=== PATIENT | female | born 1975 | race Caucasian/White ===

== ENCOUNTER 2017-10-08 15:35 | Inpatient (IN) | payer MEDICAID ==
[~2017-10-08] VITALS: Ht 160 cm; Wt 121.8 kg
[2017-10-08 15:38] VITALS: Ht 160 cm; Wt 121.8 kg
[2017-10-08] MEDS ORDERED: LOSARTAN POTAS100 M1 PO (16:36)
[2017-10-08] MEDS ORDERED: VITAMIN B121000 MCG PO (16:37)
[2017-10-08] MEDS ORDERED: ZOL100 PO (16:37)
[2017-10-08] MEDS ORDERED: VITAMIN D32000 I2 PO (16:37)
[2017-10-08] MEDS ORDERED: ZYRTEC10 MG PO (16:38)
[2017-10-08] MEDS ORDERED: JARDIANCE25 MG PO (16:38)
[2017-10-08] MEDS ORDERED: HUMALOG100 UNIT/1 SQ (16:38)
[2017-10-08 16:39] LABS: UA SPECIFIC GRAVITY <=1.005 (1.005-1.035); microscopic required? YES; urine erythrocyte 2+ (NEGATIVE)
[2017-10-08] MEDS ORDERED: FUROSEMIDE40 MG PO (16:39)
[2017-10-08] MEDS ORDERED: SIMVASTATIN20 M1 PO (16:39)
[2017-10-08] MEDS ORDERED: POTASSIUM CHLO10 MEQ PO (16:42)
[2017-10-08] MEDS ORDERED: TOPAMAX50 M1 PO (16:43)
[2017-10-08] MEDS ORDERED: TOPAMAX100 MG PO (16:43)
[2017-10-08] MEDS ORDERED: IMITREX100 MG PO (16:43)
[2017-10-08 16:45] LABS: BASOPHIL % 0.3 % (0-2); PLATELET COUNT 332 x10^3mcL (130-400); RED CELL DISTRIBUTION WIDTH 14.1 % (11.5-14.5)
[2017-10-08 16:46] LABS: CARBON DIOXIDE 28.2 mmol/L (21-32); CHLORIDE SERUM 103 mmol/L (98-107); CREATININE SERUM 0.8 mg/dL (0.6-1.0); GFR1 > 60 mL/min; GLUCOSE SERUM 270 mg/dL (74-106); SODIUM SERUM 140 mmol/L (136-145)
[2017-10-08 16:52] LABS: ALKALINE PHOSPHATASE 65 U/L (46-116); ALT/SGPT 27 U/L (14-59); AST/SGOT 16 U/L (15-37); BILIRUBIN TOTAL 0.28 mg/dL (0.20-1.00)
[2017-10-08 16:56] LABS: ALBUMIN 2.9 g/dL (3.4-5.0)
[2017-10-08 17:39] LABS: AMPHETAMINE QUAL UR NONE DETECTED (NEG <=1000)
[2017-10-08 17:40] LABS: CHOLESTEROL/HDL RATIO 2.8; MAGNESIUM 2.1 mg/dL (1.8-2.4); PHOSPHOROUS 3.8 mg/dL (2.5-4.9)
[2017-10-08 17:46] VITALS: BP 143/68
[2017-10-08 17:47] LABS: T3 TOTAL 1.14 ng/mL
[2017-10-08 18:15] LABS: FREE T4 1.23 ng/dL (0.76-1.46); FREE THYROXINE INDEX 3.6 ug/dL (1.4-4.5); T4(THYROXINE) 10.4 ug/dL (4.7-13.3)
[2017-10-08 20:40] VITALS: BP 124/63
[2017-10-09 05:53] VITALS: BP 107/51
[2017-10-09 06:03] LABS: BASOPHIL % 0.3 % (0-2); PLATELET COUNT 272 x10^3mcL (130-400); RED CELL DISTRIBUTION WIDTH 13.7 % (11.5-14.5)
[2017-10-09 06:23] LABS: CALCIUM 7.9 mg/dL (8.5-10.1); CARBON DIOXIDE 28.1 mmol/L (21-32); CHLORIDE SERUM 106 mmol/L (98-107); CREATININE SERUM 0.6 mg/dL (0.6-1.0); GFR1 > 60 mL/min; GLUCOSE SERUM 137 mg/dL (74-106); POTASSIUM SERUM 3.8 mmol/L (3.5-5.1); SODIUM SERUM 140 mmol/L (136-145)
[2017-10-09 09:23] VITALS: BP 122/55
[2017-10-09 14:09] VITALS: BP 102/58
[2017-10-09 16:51] VITALS: BP 113/51
[2017-10-09 20:43] VITALS: BP 117/48
[2017-10-10 05:46] LABS: BASOPHIL % 0.4 % (0-2); PLATELET COUNT 285 x10^3mcL (130-400); RED CELL DISTRIBUTION WIDTH 13.7 % (11.5-14.5)
[2017-10-10 06:00] VITALS: BP 113/64
[2017-10-10 06:09] LABS: CALCIUM 8.5 mg/dL (8.5-10.1); CARBON DIOXIDE 27.7 mmol/L (21-32); CHLORIDE SERUM 103 mmol/L (98-107); CREATININE SERUM 0.7 mg/dL (0.6-1.0); GFR1 > 60 mL/min; GLUCOSE SERUM 194 mg/dL (74-106); MAGNESIUM 2.1 mg/dL (1.8-2.4); POTASSIUM SERUM 3.9 mmol/L (3.5-5.1); SODIUM SERUM 137 mmol/L (136-145)
[2017-10-10 08:26] VITALS: BP 123/59
[2017-10-10 13:45] VITALS: BP 121/72
[2017-10-10 17:00] VITALS: BP 115/48
[2017-10-10 22:10] VITALS: BP 101/47
[2017-10-11 05:29] VITALS: BP 102/55
[2017-10-11 06:26] LABS: CALCIUM 8.4 mg/dL (8.5-10.1); CARBON DIOXIDE 26.6 mmol/L (21-32); CHLORIDE SERUM 105 mmol/L (98-107); CREATININE SERUM 0.8 mg/dL (0.6-1.0); GFR1 > 60 mL/min; GLUCOSE SERUM 288 mg/dL (74-106); POTASSIUM SERUM 4.4 mmol/L (3.5-5.1); SODIUM SERUM 137 mmol/L (136-145)
[2017-10-11 06:27] LABS: BASOPHIL % 0.4 % (0-2); PLATELET COUNT 315 x10^3mcL (130-400); RED CELL DISTRIBUTION WIDTH 13.7 % (11.5-14.5)
[2017-10-11] MEDS ORDERED: LAC PO (09:22)
[2017-10-11] MEDS ORDERED: MOT800 PO (09:24)
[2017-10-11] MEDS ORDERED: KEFLEX500 M1 PO (09:24)
[2017-10-11 10:05] VITALS: BP 108/60
[2017-10-11 12:10] VITALS: BP 108/60
== END 2017-10-11 14:15 | disposition home or self-care (01) | DRG 720 ==
LOC: ED 15:35 → DU 16:45 → MU 10-11 07:20
PROVIDERS: Emergency Medicine; Family Medicine; Family Medicine Sports Medicine
DX: A41.9 Sepsis, unspecified organism (principal); E43 Unspecified severe protein-calorie malnutrition; I11.0 Hypertensive heart disease with heart failure; I50.30 Unspecified diastolic (congestive) heart failure; L03.314 Cellulitis of groin; F17.200 Nicotine dependence, unspecified, uncomplicated; M79.3 Panniculitis, unspecified; E78.5 Hyperlipidemia, unspecified; E11.65 Type 2 diabetes mellitus with hyperglycemia; F41.9 Anxiety disorder, unspecified; E66.01 Morbid (severe) obesity due to excess calories; G43.909 Migraine, unspecified, not intractable, without status migrainosus; Z68.42 Body mass index [BMI] 45.0-49.9, adult; Z79.4 Long term (current) use of insulin; Z79.899 Other long term (current) drug therapy
CPT/HCPCS: 82962; 83880; 84439; G0480; J1815; J1885; J2270; J2543; J3490; J7030; Q0092; Q9967